=== PATIENT | female | born 1985 | race Caucasian/White ===

== ENCOUNTER 2019-05-15 21:22 | Emergency (ER) | payer SELFPAY ==
[~2019-05-15] VITALS: Ht 165.1 cm; Wt 60.8 kg
[2019-05-15] MEDS ORDERED: IV NORMAL SALINE 1,000ML 1,000 ML IV ONE (21:45)
[2019-05-15 22:17] LABS: BASO # 0.2 x10^3/uL (0.0-0.2); BASO % 2 % (0-3); EOS # 0.3 x10^3/uL (0.0-0.7); EOS % 3 % (0-3); HEMATOCRIT 38.5 % (36.0-47.0); HEMOGLOBIN 12.6 g/dL (12.0-15.5); LYMPH # 2.2 x10^3/uL (1.0-4.8); LYMPH % 22 % (24-48); MEAN CORPUSCULAR HEMOGLOBIN 31 pg (25-35); MEAN CORPUSCULAR HGB CONC 33 g/dL (31-37); MEAN CORPUSCULAR VOLUME 95 fL (79-100); MONO # 0.5 x10^3/uL (0.0-1.1); MONO % 5 % (0-9); NEUT # 6.8 x10^3uL (1.8-7.7); NEUT % 68 % (31-73); PLATELET COUNT 184 x10^3/uL (140-400); RED BLOOD COUNT 4.05 x10^6/uL (3.50-5.40); RED CELL DISTRIBUTION WIDTH 14.1 % (11.5-14.5)
--- NOTE | 2019-05-15 22:18 | PHYS DOC ---
Past History Past Medical History: No Pertinent History Past Surgical History: Alcohol Use: Occasionally Drug Use: None Adult General Chief Complaint Chief Complaint: OVERDOSE HPI HPI 34-year-old female presents via EMS after drug overdose. The patient was at home and had 3 bottles of beer to drink today. She had a friend over that gave her an OxyContin. The patient tells me this was likely the street. She was watching TV and that is the last thing she remembers. When she woke up EMS was all around her. While the patient was unconscious, her thought that she stopped breathing other heart stopped. He called EMS. When EMS arrived, he was doing compressions. EMS found the patient to have slow shallow breathing about 4 respirations a minute. Her face was cyanotic. She did have a radial pulse. They bagged the patient and gave her 2 mg of Narcan. She then came around and has been alert and oriented since. She still has pinpoint pupils. The patient denies any other drug use. She has chest wall pain and is very embarrassed. Review of Systems Review of Systems Constitutional: Denies fever or chills [] Eyes: Denies change in visual acuity, redness, or eye pain [] HENT: Denies nasal congestion or sore throat [] Respiratory: Denies cough or shortness of breath [] Cardiovascular: No additional information not addressed in HPI [] GI: Denies abdominal pain, nausea, vomiting, bloody stools or diarrhea [] : Denies dysuria or hematuria [] Musculoskeletal: Chest wall pain[] Integument: Denies rash or skin lesions [] Neurologic: Denies headache, focal weakness or sensory changes [] Endocrine: Denies polyuria or polydipsia [] All other systems were reviewed and found to be within normal limits, except as documented in this note. Current Medications Current Medications Current Medications Medications (Trade) Dose Ordered Sig/Franny Start Time Stop Time Status Last Admin Dose Admin Sodium Chloride 1,000 ml @ 1,000 mls/hr 1X ONCE 05/15/19 21:45 05/15/19 22:44 05/15/19 21:55 1,000 MLS/HR Allergies Allergies Allergies Coded Allergies Type Severity Reaction Last Updated Verified No Known Drug Allergies 05/15/19 No Physical Exam Physical Exam Constitutional: Well developed, well nourished, no acute distress, non-toxic appearance. [] HENT: Normocephalic, atraumatic, bilateral external ears normal, oropharynx moist, no oral exudates, nose normal. [] Eyes: Pinpoint pupils, EOMI, conjunctiva normal, no discharge. [] Neck: Normal range of motion, no tenderness, supple, no stridor. [] Cardiovascular: Heart rate regular rhythm, no murmur [] Lungs & Thorax: Bilateral breath sounds clear to auscultation [] Abdomen: Bowel sounds normal, soft, no tenderness, no masses, no pulsatile masses. [] Skin: Warm, dry, no erythema, no rash. [] Back: No tenderness, no CVA tenderness. [] Extremities: No tenderness, no cyanosis, no clubbing, ROM intact, no edema. [] Neurologic: Alert and oriented X 3, normal motor function, normal sensory function, no focal deficits noted. [] Psychologic: Affect normal, judgement normal, mood upset. [] Current Patient Data Vital Signs Vital Signs Date Time Temp Pulse Resp B/P (MAP) Pulse Ox O2 Delivery O2 Flow Rate FiO2 05/15/19 21:33 97.8 94 16 100 Room Air EKG EKG Sinus rhythm, rate 84, normal axis, no ST elevations or depressions.[] Radiology/Procedures Radiology/Procedures [] Impressions: CHEST AP ONLY Clinical History: Dyspnea Technique: AP view of the chest was obtained at 05/15/2019 9:40 PM. Comparison: None. Findings: The cardiomediastinal silhouette is normal. The pulmonary vasculature is normal. The lungs and pleural margins are clear. Impression: No evidence of an acute cardiopulmonary process. Electronically signed by: Pako Bush III, MD (05/15/2019 10:55 PM) [facility] [place] DICTATED AND SIGNED BY: PAKO BUSH III, MD DATE: 05/15/19 0122 CC: RANDY GILMORE DO; PCP,NO ~ Course & Med Decision Making Course & Med Decision Making Pertinent Labs and Imaging studies reviewed. (See chart for details) The patient's labs are unremarkable. Her urine drug screen was positive only for alcohol. I believe it is likely the patient took a synthetic opiate. It is been over 2 hours since her Narcan dose and the patient is still alert and awake. I believe she can be safely discharged to home with family who will care for her. She is stable for discharge at this time. [] Dragon Disclaimer Dragon Disclaimer This electronic medical record was generated, in whole or in part, using a voice recognition dictation system. Departure Departure: Impression: Primary Impression: Accidental drug overdose Disposition: 01 HOME, SELF-CARE Condition: STABLE Referrals: PCP,UNKNOWN (PCP) Patient Instructions: Drug Abuse, FAQs Problem Qualifiers Primary Impression: Accidental drug overdose Encounter type: initial encounter Qualified Codes: T50.901A - Poisoning by unspecified drugs, medicaments and biological substances, accidental (unintentional), initial encounter RANDY GILMORE DO May 15, 2019 22:18
[2019-05-15 22:24] LABS: BARBITURATES NEG (NEG); BENZODIAZEPINES NEG (NEG); CANNABINOIDS NEG (NEG); COCAINE NEG (NEG); METHADONE NEG (NEG); OPIATES NEG (NEG); PHENCYCLIDINE NEG (NEG)
[2019-05-15 22:25] LABS: AMPHETAMINE/METHAMPHETAMINE NEG (NEG)
[2019-05-15 22:39] LABS: BACTERIA,URINE FEW /HPF (0-FEW); BILIRUBIN,URINE NEG (NEG); CLARITY,URINE CLEAR; COLOR,URINE YELLOW; GLUCOSE,URINE NEG (NEG); HYALINE CASTS, URINE OCC /HPF; NITRITE,URINE NEG (NEG); RBC,URINE OCC /HPF (0-2); SQUAMOUS EPITHELIAL CELL,UR FEW /LPF; UROBILINOGEN,URINE 0.2 mg/dL (0.2 mg/dL); WBC,URINE OCC /HPF (0-4)
--- NOTE | 2019-05-15 22:58 | RAD ---
CHEST AP ONLY Clinical History: Dyspnea Technique: AP view of the chest was obtained at 05/15/2019 9:40 PM. Comparison: None. Findings: The cardiomediastinal silhouette is normal. The pulmonary vasculature is normal. The lungs and pleural margins are clear. Impression: No evidence of an acute cardiopulmonary process. Electronically signed by: Zohaib Bush III, MD (05/15/2019 10:55 PM) [facility]
[2019-05-15 23:07] LABS: % BANDS 1 % (0-9); % LYMPHS 18 % (24-48); % MONOS 4 % (0-10); % SEGS 76 % (35-66)
[2019-05-15 23:08] LABS: % BASOS 1 % (0-3); PLT ESTIMATE ADEQUATE (ADEQUATE)
[2019-05-15] MEDS ORDERED: ONDANSETRON PF 4 MG/2 ML VIAL. IVP ONE (23:15)
[2019-05-15 23:21] VITALS: BP 110/59
--- NOTE | 2019-05-16 01:51 | EKG ---
[address] [address] Test Date: 2019-05-15 Test Time: 21:49:02 Pat Name: YANIRA HERRERA Department: Room: Gender: F Health Unit Supervisor: : 1985 Requested By: RANDY GILMORE Order Number: [id number] Reading MD: Marquis Horowitz MD Measurements Intervals [place] Rate: 84 P: 53 TN: 150 QRS: 63 QRSD: 86 T: 58 QT: 374 QTc: 445 Interpretive Statements SINUS RHYTHM Electronically Signed On 05-26-2019 9:43:53 CDT by Marquis Horowitz MD
== END 2019-05-15 23:45 | disposition home or self-care (01) ==
LOC: ER 21:22
DX: T40.2X1A Poisoning by other opioids, accidental (unintentional), initial encounter (principal); R40.20 Unspecified coma; R07.89 Other chest pain; Y92.098 Other place in other non-institutional residence as the place of occurrence of the external cause
CPT/HCPCS: 36415; 71045; 80307; 81001; 81025; 84484; 85007; 85025; 93005; 96374; 99285; J2405; 96361; J7030

== ENCOUNTER 2020-07-03 12:49 | Emergency (ER) | payer SELFPAY ==
[~2020-07-03] VITALS: Ht 154.9 cm; Wt 54.5 kg
[2020-07-03] MEDS ORDERED: IV NORMAL SALINE 1,000ML 1,000 ML IV ONE (13:00)
[2020-07-03 13:27] LABS: BASO # 0.1 x10^3/uL (0.0-0.2); BASO % 1 % (0-3); EOS # 0.1 x10^3/uL (0.0-0.7); EOS % 1 % (0-3); HEMATOCRIT 39.6 % (36.0-47.0); HEMOGLOBIN 12.9 g/dL (12.0-15.5); LYMPH # 2.6 x10^3/uL (1.0-4.8); LYMPH % 26 % (24-48); MEAN CORPUSCULAR HEMOGLOBIN 30 pg (25-35); MEAN CORPUSCULAR HGB CONC 33 g/dL (31-37); MEAN CORPUSCULAR VOLUME 93 fL (79-100); MONO # 0.6 x10^3/uL (0.0-1.1); MONO % 6 % (0-9); NEUT # 6.4 x10^3uL (1.8-7.7); NEUT % 66 % (31-73); PLATELET COUNT 278 x10^3/uL (140-400); RED BLOOD COUNT 4.26 x10^6/uL (3.50-5.40); RED CELL DISTRIBUTION WIDTH 14.6 % (11.5-14.5); WHITE BLOOD COUNT 9.7 x10^3/uL (4.0-11.0)
[2020-07-03 13:28] VITALS: BP 135/79
[2020-07-03 13:36] LABS: CALCIUM 9.5 mg/dL (8.5-10.1); CREATININE 0.8 mg/dL (0.6-1.0); GFR 82.6; POTASSIUM 3.8 mmol/L (3.5-5.1)
--- NOTE | 2020-07-03 13:36 | RAD ---
EXAM: CHEST ONE VIEW. HISTORY: Chest pain, unresponsive, resuscitated. COMPARISON: 05/15/2019. FINDINGS: A frontal view of the chest is obtained. There are no confluent infiltrates. There is no pneumothorax or pleural effusion. The heart is not enlarged. IMPRESSION: 1. No confluent infiltrates. Electronically signed by: Marisel Lowery MD (07/03/2020 1:33 PM) [id number]
[2020-07-03 13:38] LABS: ACETAMIN < 2 mcg/mL (10-30); SALIC < 2.8 mg/dL (2.8-20.0)
[2020-07-03 13:39] LABS: ETHANOL < 10 mg/dL (0-10)
[2020-07-03 13:40] LABS: BARBITURATES NEG (NEG); BENZODIAZEPINES POS (NEG); CANNABINOIDS POS (NEG); COCAINE NEG (NEG); METHADONE NEG (NEG); OPIATES NEG (NEG); PHENCYCLIDINE NEG (NEG)
[2020-07-03 13:40] LABS: ALBUMIN 4.3 g/dL (3.4-5.0); ALBUMIN/GLOBULIN RATIO 1.2 (1.0-1.7); MAGNESIUM 1.9 mg/dL (1.8-2.4); TOTAL BILIRUBIN 0.5 mg/dL (0.2-1.0); TOTAL PROTEIN 7.8 g/dL (6.4-8.2)
[2020-07-03 13:41] LABS: AMPHETAMINE/METHAMPHETAMINE POS (NEG)
[2020-07-03 13:51] LABS: BACTERIA,URINE MANY /HPF (0-FEW); BILIRUBIN,URINE NEG (NEG); CLARITY,URINE CLOUDY; COLOR,URINE YELLOW; GLUCOSE,URINE NEG (NEG); NITRITE,URINE NEG (NEG); RBC,URINE OCC /HPF (0-2); SQUAMOUS EPITHELIAL CELL,UR MANY /LPF; UROBILINOGEN,URINE 0.2 mg/dL (0.2 mg/dL)
--- NOTE | 2020-07-03 15:33 | PHYS DOC ---
Past History Past Medical History: Migraines, Other Additional Past Medical Histor: scoliosis Past Surgical History: Alcohol Use: None Drug Use: None General Adult EDM: Chief Complaint: OVERDOSE HPI: HPI: Patient is a 35-year-old female who was brought here by EMS from home after she was found unresponsive by her fianc. Per report, patient was found unresponsive in her bed, she was pale, not responsive to verbal. Her fianc then proceeded to perform two chest compressions, that woke patient up. EMS were called to take her here for evaluation. Patient was not given any medication by EMS. Patient admitted of taking oxycodone and some benzo. She also smoked marijuana. Patient admitted of substance abuse. She just moved over here to be with her fiancee from [facility]. Patient had 4 children, 2 of them live with her here and 2 of them live with her ex-. Patient denies suicidal ideation, denies homicidal ideation. Patient says she is depressed about her substance abuse problem and wanting to get help. Patient denies any chest pain or any trouble breathing. Patient denies any abdominal pain, no nausea vomiting, no headache. Review of Systems: Review of Systems: Constitutional: Denies fever or chills Eyes: Denies change in visual acuity HENT: Denies nasal congestion or sore throat Respiratory: Denies cough or shortness of breath Cardiovascular: Denies chest pain or edema GI: Denies abdominal pain, nausea, vomiting, bloody stools or diarrhea : Denies dysuria Musculoskeletal: Denies back pain or joint pain Integument: Denies rash Neurologic: Denies headache, focal weakness or sensory changes Endocrine: Denies polyuria or polydipsia Lymphatic: Denies swollen glands Psychiatric: Positive for depression, no anxiety, no suicidal ideation, no homicidal ideation. Current Medications: Current Meds: Current Medications Medications (Trade) Dose Ordered Sig/Franny Start Time Stop Time Status Last Admin Dose Admin Sodium Chloride 1,000 ml @ 1,000 mls/hr 1X ONCE 07/03/20 13:00 07/03/20 13:59 DC Allergies: Allergies: Allergies Coded Allergies Type Severity Reaction Last Updated Verified No Known Drug Allergies 05/15/19 No Physical Exam: PE: Constitutional: Well developed, well nourished, no acute distress, non-toxic appearance. [] HENT: Normocephalic, atraumatic, bilateral external ears normal, oropharynx moist, no oral exudates, nose normal. [] Eyes: PERRLA, EOMI, conjunctiva normal, no discharge. [] Neck: Normal range of motion, no tenderness, supple, no stridor. [] Cardiovascular:Heart rate regular rhythm, no murmur [] Lungs & Thorax: Bilateral breath sounds clear to auscultation [] Abdomen: Bowel sounds normal, soft, no tenderness, no masses, no pulsatile masses. [] Skin: Warm, dry, no erythema, no rash. [] Back: No tenderness, no CVA tenderness. [] Extremities: No tenderness, no cyanosis, no clubbing, ROM intact, no edema. [] Neurologic: Alert and oriented X 3, normal motor function, normal sensory function, no focal deficits noted. [] Psychologic: Affect normal, judgement normal, mood normal. Denies suicidal ideation, denies homicidal ideation. Current Patient Data: Labs: Laboratory Tests Test 07/03/20 13:05 07/03/20 13:07 07/03/20 13:10 White Blood Count 9.7 x10^3/uL (4.0-11.0) Red Blood Count 4.26 x10^6/uL (3.50-5.40) Hemoglobin 12.9 g/dL (12.0-15.5) Hematocrit 39.6 % (36.0-47.0) Mean Corpuscular Volume 93 fL (79-100) Mean Corpuscular Hemoglobin 30 pg (25-35) Mean Corpuscular Hemoglobin Concent 33 g/dL (31-37) Red Cell Distribution Width 14.6 % (11.5-14.5) H Platelet Count 278 x10^3/uL (140-400) Neutrophils (%) (Auto) 66 % (31-73) Lymphocytes (%) (Auto) 26 % (24-48) Monocytes (%) (Auto) 6 % (0-9) Eosinophils (%) (Auto) 1 % (0-3) Basophils (%) (Auto) 1 % (0-3) Neutrophils # (Auto) 6.4 x10^3uL (1.8-7.7) Lymphocytes # (Auto) 2.6 x10^3/uL (1.0-4.8) Monocytes # (Auto) 0.6 x10^3/uL (0.0-1.1) Eosinophils # (Auto) 0.1 x10^3/uL (0.0-0.7) Basophils # (Auto) 0.1 x10^3/uL (0.0-0.2) Sodium Level 136 mmol/L (136-145) Potassium Level 3.8 mmol/L (3.5-5.1) Chloride Level 100 mmol/L (98-107) Carbon Dioxide Level 27 mmol/L (21-32) Anion Gap 9 (6-14) Blood Urea Nitrogen 8 mg/dL (7-20) Creatinine 0.8 mg/dL (0.6-1.0) Estimated GFR (Cockcroft-Gault) 82.6 BUN/Creatinine Ratio 10 (6-20) Glucose Level 128 mg/dL (70-99) H Calcium Level 9.5 mg/dL (8.5-10.1) Magnesium Level 1.9 mg/dL (1.8-2.4) Total Bilirubin 0.5 mg/dL (0.2-1.0) Aspartate Amino Transferase (AST) 27 U/L (15-37) Alanine Aminotransferase (ALT) 51 U/L (14-59) Alkaline Phosphatase 119 U/L (46-116) H Total Protein 7.8 g/dL (6.4-8.2) Albumin 4.3 g/dL (3.4-5.0) Albumin/Globulin Ratio 1.2 (1.0-1.7) Salicylates Level < 2.8 mg/dL (2.8-20.0) L Salicylate Last Dose Date Unknown Salicylate Last Dose Time Unknown Acetaminophen Level < 2 mcg/mL (10-30) L Acetaminophen Last Dose Date Unknown Acetaminophen Last Dose Time Unknown Ethyl Alcohol Level < 10 mg/dL (0-10) Urine Collection Type Unknown Urine Color Yellow Urine Clarity Cloudy Urine pH 5.0 Urine Specific Bogard >=1.030 Urine Protein 30 mg/dl (NEG-TRACE) Urine Glucose (UA) Neg mg/dL (NEG) Urine Ketones (Stick) Neg mg/dL (NEG) Urine Blood Neg (NEG) Urine Nitrite Neg (NEG) Urine Bilirubin Neg (NEG) Urine Urobilinogen Dipstick 0.2 mg/dL (0.2 mg/dL) Urine Leukocyte Esterase Neg (NEG) Urine RBC Occ /HPF (0-2) Urine WBC 5-10 /HPF (0-4) Urine Squamous Epithelial Cells Many /LPF Urine Bacteria Many /HPF (0-FEW) Urine Opiates Screen Neg (NEG) Urine Methadone Screen Neg (NEG) Urine Barbiturates Neg (NEG) Urine Phencyclidine Screen Neg (NEG) Urine Amphetamine/Methamphetamine Pos (NEG) Urine Benzodiazepines Screen Pos (NEG) Urine Cocaine Screen Neg (NEG) Urine Cannabinoids Screen Pos (NEG) Urine Ethyl Alcohol Neg (NEG) POC Urine HCG, Qualitative hcg negative (Negative) Vital Signs: Vital Signs Date Time Temp Pulse Resp B/P (MAP) Pulse Ox O2 Delivery O2 Flow Rate FiO2 07/03/20 13:28 97.0 100 28 135/79 (97) 99 EKG: EKG: [] Radiology/Procedures: Radiology/Procedures: [][place] [address] IMAGING REPORT Signed PATIENT: YANIRA HERRERA ACCOUNT: [id number] : 1985 LOCATION: ER AGE: 35 SEX: F EXAM STATUS: REG ER ORD. PHYSICIAN: SURI BERNAL DO REASON: CPR after she was found unresponsive, chest pain PROCEDURE: CHEST AP ONLY EXAM: CHEST ONE VIEW. HISTORY: Chest pain, unresponsive, resuscitated. COMPARISON: 05/15/2019. FINDINGS: A frontal view of the chest is obtained. There are no confluent infiltrates. There is no pneumothorax or pleural effusion. The heart is not enlarged. IMPRESSION: 1. No confluent infiltrates. Electronically signed by: Marisel Lowery MD (07/03/2020 1:33 PM) [id number] DICTATED AND SIGNED BY: VINAYAK LOWERY MD DATE: 07/03/20 1333 CC: PCP,NO; SURI BERNAL DO ~MTH0 0 Heart Score: Risk Factors: Risk Factors: DM, Current or recent (<one month) smoker, HTN, HLP, family history of CAD, obesity. Risk Scores: Score 0 - 3: 2.5% MACE over next 6 weeks - Discharge Home Score 4 - 6: 20.3% MACE over next 6 weeks - Admit for Clinical Observation Score 7 - 10: 72.7% MACE over next 6 weeks - Early Invasive Strategies Course & Med Decision Making: Course & Med Decision Making Pertinent Labs and Imaging studies reviewed. (See chart for details) Patient is a 35-year-old female who was evaluated in the ER after she accidentally overdosed on narcotics and benzo at home. Patient denies suicidal ideation, denies homicidal ideation. Patient admitted of having problem with substance abuse, she obtained the medication from various people on the street. She was evaluated by the [facility], contract safety, recommended discharge home. Patient has been up, walk to the bathroom by herself without any problem, her vital signs were stable. Patient denies any chest pain, no abdominal pain, no trouble breathing. Patient mirta came to take her home Dragon Disclaimer: Dragon Disclaimer: This electronic medical record was generated, in whole or in part, using a voice recognition dictation system. Departure Departure: Impression: Primary Impression: Substance abuse Additional Impression: Accidental drug overdose Disposition: 01 DC HOME SELF CARE/HOMELESS Condition: IMPROVED Referrals: PCP,MYRON (PCP) Please follow up with [facility] [address] [place] [id number] Patient Instructions: Overdose, Accidental, Substance Abuse-Brief Additional Instructions: Thank you for visiting our Emergency Department. We appreciate you trusting us with your care. If any additional problems come up don't hesitate to return to visit us. Please follow up with your primary care provider so they can plan additional care if needed and know about the problem that you had. If symptoms worsen come back to the Emergency Department. Any concerning symptoms that start such as chest pain, shortness of air, weakness or numbness on one side of the body, running high fevers or any other concerning symptoms return to the ER. SURI BERNAL DO Jul 03, 2020 15:33
== END 2020-07-03 17:18 | disposition home or self-care (01) ==
LOC: ER 12:49
DX: T40.2X1A Poisoning by other opioids, accidental (unintentional), initial encounter (principal); T50.991A Poisoning by other drugs, medicaments and biological substances, accidental (unintentional), initial encounter; F12.10 Cannabis abuse, uncomplicated; G43.909 Migraine, unspecified, not intractable, without status migrainosus; F32.9 Major depressive disorder, single episode, unspecified; Y92.89 Other specified places as the place of occurrence of the external cause
CPT/HCPCS: 36415; 71045; 80053; 80307; 80329; 81001; 81025; 83735; 85025; 87086; 99284; G0480

== ENCOUNTER 2020-08-21 01:59 | Emergency (ER) | payer SELFPAY ==
[~2020-08-21] VITALS: Ht 154.9 cm; Wt 52.6 kg
--- NOTE | 2020-08-21 02:17 | PHYS DOC ---
Past History Past Medical History: Migraines, Other Additional Past Medical Histor: scoliosis Past Surgical History: Alcohol Use: None Drug Use: None Adult General HPI HPI Patient is a 35-year-old female with a past medical history significant for substance abuse who presents with a chief complaint of overdose. Patient states that she occasionally gets OxyContin laced with fentanyl and took 1 sometime before midnight. Per and EMS, stated that she became very sleepy and unresponsive and tried to push on her chest to do CPR after calling EMS. EMS stated on arrival she had a pulse, and was breathing but was somnolent but arousable. EMS felt patient most likely did not have cardiac arr est. EMS stated they gave Narcan in route and patient woke up almost immediately and had an episode of nausea and vomiting. Patient states she was just trying to get high and was not trying to hurt her self and overdid it. States she has done this before by accident. States that she does have a problem with these. Denies headache, changes in vision, chest pain, shortness of breath, abdominal pain. Denies any recent traumas, illnesses or known ill contacts. States she feels a little nauseous right now but otherwise feels okay. Review of Systems Review of Systems Review of systems otherwise unremarkable outside of noted in HPI. Allergies Allergies Allergies Coded Allergies Type Severity Reaction Last Updated Verified No Known Drug Allergies 05/15/19 No Physical Exam Physical Exam Constitutional: Well developed, well nourished, no acute distress, non-toxic appearance. [] HENT: Normocephalic, atraumatic, bilateral external ears normal, oropharynx moist, no oral exudates, nose normal. [] Eyes: PERRLA, EOMI, conjunctiva normal, no discharge. [] Neck: Normal range of motion, no tenderness, supple, no stridor. [] Cardiovascular:Heart rate regular rhythm, no murmur [] Lungs & Thorax: Bilateral breath sounds clear to auscultation [] Abdomen: Bowel sounds normal, soft, no tenderness, no masses, no pulsatile masses. [] Skin: Warm, dry, no erythema, no rash. [] Back: No tenderness, no CVA tenderness. [] Extremities: No tenderness, no cyanosis, no clubbing, ROM intact, no edema. [] Neurologic: Alert and oriented X 3, normal motor function, normal sensory function, no focal deficits noted. [] Psychologic: Affect normal, judgement normal, mood normal. [] EKG EKG [] Radiology/Procedures Radiology/Procedures []IMPRESSION: 1. No radiographic evidence for acute cardiopulmonary process. Electronically signed by: De Mims MD (08/21/2020 3:11 AM) [facility] Heart Score Risk Factors: Risk Factors: DM, Current or recent (<one month) smoker, HTN, HLP, family history of CAD, obesity. Risk Scores: Risk Factors: DM, Current or recent (<one month) smoker, HTN, HLP, family history of CAD, obesity. Course & Med Decision Making Course & Med Decision Making Patient is a 35-year-old female who presents after overdose on probable opiate laced with fentanyl as endorsed by patient Vital signs not concerning. Physical exam noted above. Patient placed on the monitor with IV access established, IV fluid resuscitation begun and Narcan by the bedside. On arrival to the ED patient was awake alert and oriented able to describe the events of the evening. States that she does still feel a little nauseous despite getting nausea medicine in route. Denies SI, HI or hallucinations. States that she has got supposed OxyContin pills that were actually laced with fentanyl previously. After approximately 2 hours in the emergency department patient remained awake alert and oriented. Patient able to take p.o. without issue. States that she was ready to go home and felt safe to go home. Advised to try and cease substance use given the risks of overdose. Advised to follow-up with primary care physician first thing Saturday to discuss strategies of opioid weaning. Advised to come back to the ED with any new or concerning symptoms. Patient grateful, verbalized understanding and agreed with plan of discharge. [] Dragon Disclaimer Dragon Disclaimer This electronic medical record was generated, in whole or in part, using a voice recognition dictation system. Departure Departure: Referrals: PCP,MYRON (PCP) Patient Instructions: Opiate Dependence CLEM DIAZ MD Aug 21, 2020 02:17
[2020-08-21] MEDS ORDERED: IV RINGERS SOLUTION,LACTATED 1,000 ML IV ONE (03:00)
--- NOTE | 2020-08-21 03:17 | RAD ---
EXAM: PA and Lateral Views of the Chest DATE: 08/21/2020 2:43 AM INDICATION: Reason: Anterior mid rib pain / Spl. Instructions: / History: COMPARISON: No Prior FINDINGS: The heart is not enlarged. Mediastinal and hilar contours are normal. No focal parenchymal airspace opacity. No pleural effusion or pneumothorax. IMPRESSION: 1. No radiographic evidence for acute cardiopulmonary process. Electronically signed by: De Mims MD (08/21/2020 3:11 AM) [email or web address]
[2020-08-21 03:30] VITALS: BP 98/68
== END 2020-08-21 03:49 | disposition home or self-care (01) ==
LOC: ER 01:59
DX: T40.411A Poisoning by fentanyl or fentanyl analogs, accidental (unintentional), initial encounter (principal); R11.2 Nausea with vomiting, unspecified; G43.909 Migraine, unspecified, not intractable, without status migrainosus; F19.10 Other psychoactive substance abuse, uncomplicated; Y92.89 Other specified places as the place of occurrence of the external cause
CPT/HCPCS: 71046; 96360; 99284; J7120; 99283-25